=== PATIENT | female | born 1940 | race Caucasian/White ===

== ENCOUNTER 2021-02-02 10:07 | Emergency (ER) | payer MEDICARE, OTHER ==
[~2021-02-02] VITALS: Ht 157.5 cm; Wt 63.5 kg
[2021-02-02] MEDS ORDERED: IRBESARTAN300 MG PO (10:45)
[2021-02-02] MEDS ORDERED: TOPROL XL25 MG PO (10:45)
[2021-02-02] MEDS ORDERED: LEVOTHYROXINE25 MC1 PO (10:46)
[2021-02-02] MEDS ORDERED: ZANAFLEX2 M1 PO (10:47)
--- NOTE | 2021-02-03 03:11 | EKG ---
[facility] [address] [facility] [place], [place] [address] Signed Normal sinus rhythm Left axis deviation Abnormal ECG No previous ECGs available Confirmed by KENNEY ROSE MD ([id number]) on 02/03/2021 3:11:28 AM Electronically Signed By: KENNEY ROSE MD 02/03/21310 PATIENT NAME: VAISHALI WOOD Electrocardiogram DATE OF : 42 PHYSICIAN: KENNEY ROSE MD REPORT #: [id number] REPORT IS CONFIDENTIAL AND NOT TO BE RELEASED WITHOUT AUTHORIZATION
== END 2021-02-02 12:13 | disposition home or self-care (01) ==
LOC: ED 10:07
DX: R55 Syncope and collapse (principal); R00.2 Palpitations; I10 Essential (primary) hypertension; Z88.0 Allergy status to penicillin; Z88.8 Allergy status to other drugs, medicaments and biological substances; Z79.899 Other long term (current) drug therapy
CPT/HCPCS: 80053; 83735; 84484; 85025; 93005; 93010; 99285-25

== ENCOUNTER 2021-02-06 20:57 | Emergency (ER) | payer MEDICARE, OTHER ==
[~2021-02-06] VITALS: Ht 157.5 cm; Wt 63.5 kg
[~2021-02-06 20:57] MED LIST: IRBESARTAN300 MG PO; LEVOTHYROXINE25 MC1 PO; TOPROL XL25 MG PO; ZANAFLEX2 M1 PO
--- OUTSIDE RECORDS SUMMARY | 2021-02-06 21:00 | XMS ---
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 Roseline VISIT COUNT (12 MO.) 1 [facility] [place] [facility] TOTAL 4 NOTE: Visits indicate total known visits. 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 Heartbeat, Headache - Shortness of Breath - Dyspnea, unspecified INPATIENT VISIT TRACKING (12 MO.) No inpatient visits to display in this time frame [id number]
--- NOTE | 2021-02-08 11:31 | EKG ---
[facility] [address] [facility] [place], [place] [address] Signed Normal sinus rhythm Normal ECG When compared with ECG of 02-FEB-2021 10:26, No significant change was found Confirmed by MAHESH ORNELAS MD ([id number]) on 02/08/2021 11:31:02 AM Electronically Signed By: MAHESH ORNELAS MD 02/08/21 1131 PATIENT NAME: VAISHALI WOOD Electrocardiogram DATE OF : 42 PHYSICIAN: MAHESH ORNELAS MD REPORT #: [id number] REPORT IS CONFIDENTIAL AND NOT TO BE RELEASED WITHOUT AUTHORIZATION
== END 2021-02-06 22:52 | disposition home or self-care (01) ==
LOC: ED 20:57
DX: R55 Syncope and collapse (principal); I10 Essential (primary) hypertension; E03.9 Hypothyroidism, unspecified; Z87.891 Personal history of nicotine dependence; Z88.0 Allergy status to penicillin; Z88.8 Allergy status to other drugs, medicaments and biological substances; Z79.899 Other long term (current) drug therapy
CPT/HCPCS: 80053; 83735; 84484; 85025; 93005; 93010; 99284-25

== ENCOUNTER 2021-06-12 19:27 | Emergency (ER) | payer MEDICARE, OTHER ==
[~2021-06-12] VITALS: Ht 157.5 cm; Wt 64.9 kg
[2021-06-12] MEDS ORDERED: VITAMIN C500 M1 PO (21:08)
[2021-06-12] MEDS ORDERED: ZESTRIL5 MG PO (21:09)
[2021-06-12] MEDS ORDERED: VITAMIN D310 MC3 PO (21:10)
[2021-06-12] MEDS ORDERED: VITAMIN B122500 MCG PO (21:10)
[2021-06-12] MEDS ORDERED: CITALOPRAM HBR10 MG PO (21:11)
== END 2021-06-12 21:45 | disposition home or self-care (01) ==
LOC: ED 19:27
DX: S63.501A Unspecified sprain of right wrist, initial encounter (principal); I10 Essential (primary) hypertension; E03.9 Hypothyroidism, unspecified; W01.0XXA Fall on same level from slipping, tripping and stumbling without subsequent striking against object, initial encounter; Y93.01 Activity, walking, marching and hiking; Z87.891 Personal history of nicotine dependence; Z88.0 Allergy status to penicillin; Z88.8 Allergy status to other drugs, medicaments and biological substances; Z88.2 Allergy status to sulfonamides; Z88.1 Allergy status to other antibiotic agents; Z79.899 Other long term (current) drug therapy
CPT/HCPCS: 73110; 73130; 99283-25

== ENCOUNTER 2021-12-28 13:37 | Emergency (ER) | payer MEDICARE, BC ==
[~2021-12-28] VITALS: Ht 157.5 cm; Wt 64.9 kg
[~2021-12-28 13:37] MED LIST changes: +CITALOPRAM HBR10 MG PO; +VITAMIN B122500 MCG PO; +VITAMIN C500 M1 PO; +VITAMIN D310 MC3 PO; +ZESTRIL5 MG PO
[2021-12-28] MEDS ORDERED: EUTHYROX50 MCG PO (14:02)
[2021-12-28] MEDS ORDERED: OMEPRAZOLE20 MG PO (14:04)
[2021-12-28] MEDS ORDERED: VERAPAMIL ER120 M1 PO (14:05)
== END 2021-12-28 15:34 | disposition home or self-care (01) ==
LOC: ED 13:37
DX: I10 Essential (primary) hypertension (principal); E03.9 Hypothyroidism, unspecified; Z87.891 Personal history of nicotine dependence; Z88.0 Allergy status to penicillin; Z88.8 Allergy status to other drugs, medicaments and biological substances; Z79.899 Other long term (current) drug therapy
CPT/HCPCS: 99283

== ENCOUNTER 2022-12-12 19:39 | Emergency (ER) | payer OTHER, MEDICARE, MEDICAID ==
[~2022-12-12] VITALS: Ht 157.5 cm; Wt 62.0 kg
[~2022-12-12 19:39] MED LIST changes: +EUTHYROX50 MCG PO; +OMEPRAZOLE20 MG PO; +VERAPAMIL ER120 M1 PO
[2022-12-12] MEDS ORDERED: AMLODIPINE BESYL5 MG PO (19:53)
[2022-12-12] MEDS ORDERED: METOPROLOL SUCC50 MG PO (19:53)
== END 2022-12-12 22:42 | disposition home or self-care (01) ==
LOC: ED 19:39
DX: S20.212A Contusion of left front wall of thorax, initial encounter (principal); S00.531A Contusion of lip, initial encounter; S60.222A Contusion of left hand, initial encounter; I10 Essential (primary) hypertension; E03.9 Hypothyroidism, unspecified; Z23 Encounter for immunization; Z87.891 Personal history of nicotine dependence; Z88.0 Allergy status to penicillin; Z88.8 Allergy status to other drugs, medicaments and biological substances; Z79.899 Other long term (current) drug therapy; W01.0XXA Fall on same level from slipping, tripping and stumbling without subsequent striking against object, initial encounter
CPT/HCPCS: 36415; 70450; 70486; 71260; 72126; 73130; 74177; 80053; 85025; 85610; 90471; 90714; 99284-25; G0480; Q9967

== ENCOUNTER 2023-09-23 08:50 | Day surgery (SDC) | payer MEDICARE, OTHER, MEDICAID ==
[2023-09-20 15:12] VITALS: BP 150/72
[~2023-09-23] VITALS: Ht 157.5 cm; Wt 57.2 kg
[~2023-09-23 08:50] MED LIST changes: +AMLODIPINE BESYL5 MG PO; +CETIRIZINE HCL10 MG PO; +METOPROLOL SUCC50 MG PO; +SYMBICORT 16010.2 GM INH
[2023-09-23 09:13] VITALS: BP 147/56
[2023-09-23] MEDS ORDERED: OMEPRAZOLE20 MG PO (09:19)
[2023-09-23] MEDS ORDERED: VITAMIN C500 M5 PO (09:20)
--- NOTE | 2023-09-23 12:06 | NUR ---
09/23/23 1206 Hilda Chau 1148- PT ARRIVES TO PACU, SEMI FERRIS POSITION. OPA IN PLACE WITH 10L O2 PER MASK. PT MAINTAINING OWN AIRWAY WITH JUST OPA, O2 MOVED TO WALL AND DOWN TO 6L PER MASK. PT NON REACTIVE AT THIS TIME. DRESSING IN PLACE TO LEFT CHEST, CDI. LR INFUSING TO RFA IV. ALL MONITORS IN PLACE. ABD SOFT NON DISTENDED. 1150- PT RESPONSIVE TO VERBAL STIMULI, OPENS EYES. FOLLOWS COMMANDS TO REMOVE OPA FROM MOUTH. O2 REMAINS IN PLACE AT 6L PER MASK. 1155- PT DENIES PAIN AND NAUSEA. AWAKE BUT DROWSY LOOKING AROUND PACU. ALL MONITORS REMAIN IN PLACE. LR HANGING TO RFA IV, TKO. PT HAS NO OTHER COMPLAINTS. WILL CONTINUE TO MONITOR.
[2023-09-23] MEDS ORDERED: IBUPROFEN600 MG PO (12:07)
[2023-09-23] MEDS ORDERED: HYDROCODON-ACE1 EA10 PO (12:08)
[2023-09-23] MEDS ORDERED: TYLENOL EXTRA500 MG PO (12:09)
[2023-09-23 12:24] VITALS: BP 167/63
--- NOTE | 2023-09-23 12:26 | NUR ---
LE 1225: PT IS BACK TO DS FROM PACU. SHE IS SLIGHTLY DROWSY, BUT EASILY AROUSES. SHE DENIES ANY REAL PAIN IN THE SURGICAL SITE. CALL LIGHT WITHIN REACH. WATER ON BEDSIDE TABLE. SHE WOULD LIKE APPLE SAUCE AND BETSY CRACKERS WELL. DC CRITERIA IS REVIEWED WITH PT.
--- NOTE | 2023-09-23 12:45 | NUR ---
THIS RN ANSWERS CALL LIGHT, PT REPORTS NEED TO URINE VOID. PT STANDS UP AT BEDSIDE AND REPORT NO NAUSEA OR DIZZINESS, GAIT IS AT BASELINE. THIS RN STANDBY ASSIST TO RESTROOM FOR URINE VOID OF 500 ML CLEAR/YELLOW URINE. PT BACK TO BED W/WARM BLANKETS, CALL LIGHT WITHIN REACH, NO FURTHER NEEDS AT THIS TIME.
--- NOTE | 2023-09-23 13:05 | NUR ---
PT PRAMOD CALLS TO SEE WHAT TIME SHE WILL BE READY, LET HER KNOW PT WILL BE READY AROUND 1330. PT FRIEND STATES SHE WILL BE HERE TO PICK PT UP AT THAT TIME.
--- NOTE | 2023-09-23 13:15 | NUR ---
IN ROOM FOR PT ASSESSMENT AND VS. PT REPORTS PAIN TOLERABLE AT THIS TIME, STATES NO NEED FOR PRN PAIN MEDS. PT GETTING DRESSED AND DENIES NEED FOR ASSISTANCE AT THIS TIME, CALL LIGHT WITHIN REACH.
[2023-09-23 13:30] VITALS: BP 150/64
--- NOTE | 2023-09-23 13:30 | NUR ---
IN PT ROOM FOR DISCHARGE EDUCATION, PT STATES VERBAL UNDERSTANDING OF DISCHARGE INSTRUCTIONS AND NO FURTHER QUESTIONS AT THIS TIME. PT IV DC'ED, WNL, GAUZE/COBAN IN PLACE. PT OFF OF UNIT VIA WC TO PASSENGER SIDE OF FRIEND'S VEHICLE, ALL BELONGINGS IN PT POSSESSION AT THIS TIME. PT REPORTS NO FURTHER NEEDS OR QUESTIONS.
--- NOTE | 2023-09-23 18:06 | OR ---
[facility] [address] [place], [place] [address] Signed DATE OF OPERATION: 09/23/2023 SURGEON: Lynn Odell MD PREOPERATIVE DIAGNOSIS: Metastatic colon cancer to liver. POSTOPERATIVE DIAGNOSIS: Metastatic colon cancer to liver. PROCEDURES: 1. Left subclavian Port-A-Cath placement. 2. Surgeon-directed fluoroscopy. ANESTHESIA: General, LMA; Lynn Lopez CRNA and local 10 mL of 0.25% Marcaine with epinephrine. INDICATIONS: This 83-year-old white woman is a patient of Dr. Gonzalez and Dr. Nuñez in [place]. She was found to have colon cancer on the right side managed elsewhere with colectomy and found to have metastatic colon cancer with mesenteric adenopathy. She is now to undergo palliative chemotherapy with a modified FOLFOX seventh chemotherapy regimen as outlined by Dr. Gonzalez. On that basis, a Port-A-Cath has been recommended. The risk of bleeding, infection, pneumothorax, and other unforeseen complications related to Port-A-Cath placement has been reviewed with the patient. She understands and wished to proceed. FINDINGS: She has a very thin body habitus generally speaking. Catheter was deemed best approach through the left subclavian. Placement was without problem showing good function of the catheter and good placement as well. Postprocedure chest x-ray shows no complication. DESCRIPTION OF PROCEDURE: The patient was brought to the operating room, given a general LMA type anesthetic per Anesthesia preference. Preoperative antibiotic Ancef was given. Sequential compression device stockings were years. The neck and upper torso was prepared with a chlorhexidine solution and draped sterilely. Consideration has been made for right internal jugular given the Bard port catheter flexibility and propensity to kinking in recent times. A left subclavian approach was deemed more appropriate in her case. Using the Seldinger technique, the left subclavian vein was easily accessed showing dark nonpulsatile blood. Electronically Signed By: LYNN ODELL MD 09/23/23 1806 PATIENT NAME: VAISHALI WOOD OPERATIVE REPORT DATE OF : 42 REPORT #: [id number] PHYSICIAN: LYNN ODELL MD PCP: GEOVANNY FRANCIS REPORT IS CONFIDENTIAL AND NOT TO BE RELEASED WITHOUT AUTHORIZATION [facility] [address] [place], [place] [address] Signed A flexible J-wire was passed down the needle. The needle was removed. Fluoroscopy confirmed the wire to be in the right heart system. A transverse incision was made over the left pectoralis, creating a pocket for the port itself. The port was flushed and partially secured to the pectoralis fascia. Attention was turned towards the wire emanating from the left infraclavicular space. The site was incised with an 11 blade and the dilator, subsequently dilator and peel-away introducer passed over the wire. The wire and dilator were removed demonstrating vigorous retrograde nonpulsatile bleeding. The previously inspected Groshong type catheter from the [employer] port kit was passed through the peel-away introducer. The peel-away introducer removed. Aspiration on the catheter showed easy withdrawal of dark nonpulsatile blood and easy flushing. Under fluoroscopic control with the patient in the neutral position, the catheter tip was withdrawn to the superior vena cava at the atriocaval junction. The catheter was then passed through the puncture site to the port site, trimmed to appropriate length and secured to the port device within close collar device per corporate communications manager's instructions. The port was secured to the pectoralis fascia with previously placed 2-0 Vicryl sutures. Access of the port device with angled Dillard needle confirmed easy withdrawal and easy flushing. Fluoroscopy was used to confirm good configuration of the catheter. The port was then closed with interrupted 2-0 Vicryl and running subcuticular 3-0 Vicryl for the skin. Percutaneous access of the port with an angled Dillard needle again showed good function with no sign of impediment, withdrawal of blood or infusion of heparinized saline. Steri-Strips were applied as was an Acticoat dressing. The patient was ultimately extubated and transferred to the recovery room in good condition, where a postprocedure chest x-ray showed optimal position of the catheter including its tip. MD FELIX Fonseca/MODL /[id number] cc: Dr. Nuñez Electronically Signed By: LYNN ODELL MD 09/23/23 1806 PATIENT NAME: VAISHALI WOOD OPERATIVE REPORT DATE OF : 42 REPORT #: [id number] PHYSICIAN: LYNN ODELL MD PCP: GEOVANNY FRANCIS REPORT IS CONFIDENTIAL AND NOT TO BE RELEASED WITHOUT AUTHORIZATION [address] [place], [place] [address] Signed [place] MD Copies: DAYNA GONZALEZ MD ~ Electronically Signed By: LYNN ODELL MD 09/23/23 1806 PATIENT NAME: VAISHALI WOOD OPERATIVE REPORT DATE OF : 42 REPORT #: [id number] PHYSICIAN: LYNN ODELL MD PCP: GEOVANNY FRANCIS REPORT IS CONFIDENTIAL AND NOT TO BE RELEASED WITHOUT AUTHORIZATION
== END 2023-09-23 13:35 | disposition home or self-care (01) ==
LOC: DS 08:50
PROVIDERS: ATTEND Surgery
PROC: 0JH60WZ Insertion of Totally Implantable Vascular Access Device into Chest Subcutaneous Tissue and Fascia, Open Approach (ICD-10-PCS; principal; 2023-09-23 10:45)
DX: C18.9 Malignant neoplasm of colon, unspecified (principal); C78.7 Secondary malignant neoplasm of liver and intrahepatic bile duct; E03.9 Hypothyroidism, unspecified; G47.30 Sleep apnea, unspecified; R63.4 Abnormal weight loss; Z68.26 Body mass index [BMI] 26.0-26.9, adult
CPT/HCPCS: 00532; 71045; 77001; C1788; J0690; J1100; J1644; J1885; J2371; J2405; J2704; J2765; J3010; J7121

== ENCOUNTER 2024-03-16 12:04 | Emergency (ER) | payer MEDICARE, OTHER, MEDICAID ==
[~2024-03-16] VITALS: Ht 152.4 cm; Wt 55.5 kg
[~2024-03-16 12:04] MED LIST changes: +HYDROCODON-ACE1 EA10 PO; +IBUPROFEN600 MG PO; +TYLENOL EXTRA500 MG PO; +VITAMIN C500 M5 PO
[2024-03-16] MEDS ORDERED: LEVOTHYROXINE50 MCG PO (12:20)
[2024-03-16 12:46] LABS: BASOPHILS 0.2 % (0-2); HEMATOCRIT 41.9 % (35.0-50.0); HEMOGLOBIN 13.9 g/dL (12.0-18.0); LYMPHOCYTES 7.2 % (24-44); MCH 31.3 (27-36); MCHC 33.2 g/dl (30-36); MCV 94.2 fl (81-99); MONOCYTES 2.4 % (0-12); NEUTROPHILS 90.2 % (39-80); PLATELET COUNT 232 K/uL (140-440); RBC 4.45 M/ul (4.3-5.7); RDW 15.7 (10.5-15.0)
[2024-03-16 13:15] LABS: ALBUMIN 3.9 g/dL (3.4-5.0); ALBUMIN/GLOBULIN RATIO 1.18 (1.1-2.4); BILIRUBIN, TOTAL 0.9 ng/dL (0.2-1.0); BUN/CREATININE RATIO 32.81 (6.0-28.6); CALCIUM 9.5 mg/dL (8.5-10.1); CREATININE, SERUM 0.64 mg/dL (0.55-1.02); PROTEIN, TOTAL 7.2 g/dL (6.4-8.2)
[2024-03-16] MEDS ORDERED: KETOROLAC TROMETHAMINE 15 MG/ML VIAL IV ONE (14:00)
[2024-03-16 15:18] VITALS: BP 176/81
--- NOTE | 2024-03-17 23:24 | EKG ---
[facility] [address] [facility] [place] [address] Signed Normal sinus rhythm Left axis deviation Abnormal ECG When compared with ECG of 20-SEP-2023 16:33, No significant change was found Confirmed by Zulma Moreno MD () on 03/17/2024 11:24:42 PM Electronically Signed By: ZULMA MORENO MD 03/17/242323 PATIENT NAME: VAISHALI WOOD Electrocardiogram DATE OF : 42 PHYSICIAN: ZULMA MORENO MD REPORT #: [id number] REPORT IS CONFIDENTIAL AND NOT TO BE RELEASED WITHOUT AUTHORIZATION
== END 2024-03-16 15:18 | disposition home or self-care (01) ==
LOC: ED 12:04
PROVIDERS: Emergency Medicine
DX: I10 Essential (primary) hypertension (principal); Z87.891 Personal history of nicotine dependence; Z88.0 Allergy status to penicillin; Z88.2 Allergy status to sulfonamides; Z88.8 Allergy status to other drugs, medicaments and biological substances; Z79.899 Other long term (current) drug therapy; Z79.890 Hormone replacement therapy
CPT/HCPCS: 36415; 71045; 80053; 84443; 84484; 85025; 93005; 93010; 96374; 99284; J1885